=== PATIENT | female | born 1940 | race Caucasian/White ===

== ENCOUNTER → 2021-04-06 | Day surgery (SDC) | payer MEDICARE ==
[~2021-04-06] MED LIST: AMARYL2 M1 PO; CARVEDILOL12.5 MG PO; LEVEMIR100 UNIT/1 SUBQ; NITROGLYCERIN0.4 MG SUBLING; SLOW RELEASE I159 MG PO; ST. JOSEPH ASPI81 MG PO; TIMOLOL MALEATE5 M2 EA. EYE; TORSEMIDE20 MG PO; TUMS200 MG PO; VITAMIN D-40010 MCG PO; ZETIA10 MG PO
--- NOTE | ~2021-04-06 | OP ---
[facility] [address] [place] [address] OPERATIVE REPORT Name: KEITH ROMAN Room: [facility]#: [id number] Admission: 04/06/21 Attend Phys: Chriss Aguirre Discharge: Date of : 44 Report #: [id number] THIS REPORT FOR: cc: Juanis Lagos MD, Pamela MD Patterson,Chriss León MD ~ DOC #: [id number] Chriss Aguirre MD DATE OF SURGERY: 04/06/2021 PREOPERATIVE DIAGNOSIS: End-stage renal disease. POSTOPERATIVE DIAGNOSIS: End-stage renal disease. OPERATION: Diagnostic laparoscopy. SURGEON: Chriss Aguirre MD. ANESTHESIA: General. ESTIMATED BLOOD LOSS: Minimal. SPECIMENS: None. DESCRIPTION OF PROCEDURE: After informed consent was obtained, the patient was brought to the operating room and placed supine. SCDs were placed and working, preoperative antibiotics were administered, general anesthesia was induced. The abdomen was prepped and draped in the usual sterile fashion. A 1 mm incision was made in the left upper quadrant. Veress needle was inserted. Pneumoperitoneum was established. A 5 mm trocar was then placed at that site as well. I began examining the abdomen. It was very clear from the outset that there was absolutely no room to have a peritoneal catheter. She had significant scarring of her omentum up to the abdominal wall. There was no free space. Pictures were taken to document this. The trocar was then removed under direct vision. The skin was closed with 4-0 Monocryl. Incisions were dressed with Steri-Strips. COMPLICATIONS: None. DISPOSITION: The patient was taken to recovery in satisfactory condition. MD MALISSA Rodney/[place] [address] OPERATIVE REPORT Name: KEITH ROMAN Room: [facility]#: [id number] Admission: 04/06/21 Attend Phys: Chriss Aguirre Discharge: Date of : 44 Report #: [id number] By: [id number] Aguirre MD /nt
[2021-04-06 09:05] LABS: HEMATOCRIT 27.1 % (37.0-47.0); HEMOGLOBIN 9.3 gm/dL (12.0-15.0); MCH 30.7 pg (26.0-34.0); MCHC 34.1 g/dL (28.0-37.0); MPV 7.6 fl. (7.2-11.1); RBC 3.02 mil/uL (4.20-5.00); RDW-CV 12.7 % (10.5-14.5); WBC 6.9 thou/uL (4.0-11.0)
[2021-04-06 09:11] LABS: CALCIUM 8.7 mg/dL (8.5-10.1); CREATININE 5.6 mg/dL (0.6-1.3); POTASSIUM 4.1 mmol/L (3.5-5.1)
--- NOTE | 2021-04-06 10:05 | EKG ---
[place] [address] ELECTROCARDIOGRAM REPORT Name: KEITH ROMAN Room: [facility]#: [id number] Admission: 04/06/21 Attend Phys: Chriss Matamoros Discharge: Date of : 44 Date of Service: 04/06/21922 Report #: [id number] THIS REPORT FOR: //name// [facility] Test Date: 2021-04-06 Test Time: 09:23:07 Pat Name: KEITH ROMAN Department: Room: Gender: F [employer]ified [employer]: : 1940 Requested By: Chriss Aguirre Order Number: [id number] Damaris MD: Los Willis Measurements Intervals Paulina Rate: 62 P: 27 MS: 172 QRS: -7 QRSD: 102 T: 116 QT: 424 QTc: 431 Interpretive Statements Sinus rhythm Delayed R wave progression Borderline repolarization abnormality No previous ECG available for comparison Electronically Signed On 04-06-2021 10:05:44 CDT by Los Willis [email or web address] <ELECTRONICALLY SIGNED> By: Los Willis MD, [facility] 04/06/21 1005 2 2 Los Willis MD, [facility] /EPI
== END | disposition home or self-care (01) ==
LOC: M.SUR 08:37
PROVIDERS: ATTEND Surgery
DX: N18.6 End stage renal disease (principal); Z98.890 Other specified postprocedural states; Z79.899 Other long term (current) drug therapy; Z88.0 Allergy status to penicillin; Z88.2 Allergy status to sulfonamides; Z88.8 Allergy status to other drugs, medicaments and biological substances